=== PATIENT | male | born 2000 | race African-American/Black ===

== ENCOUNTER 2018-11-10 01:45 | Emergency (ER) | payer OTHER ==
[2018-11-10 02:07] VITALS: BP 142/64
--- NOTE | 2018-11-10 04:03 | RADIOLOGY REPORT (SQ) ---
EXAM DESCRIPTION: XR TIBIA FIBULA 2 VIEWS right COMPLETED DATE/TME: 11/10/2018 03:33 CLINICAL HISTORY: 18 years, Male, injury COMPARISON: None. FINDINGS: No fracture or dislocation. Soft tissues are unremarkable. IMPRESSION: No acute abnormality.
--- NOTE | 2018-11-10 04:42 | ER Document Report ---
ED General - General Chief Complaint: Leg Injury Stated Complaint: RIGHT LEG INJURY Time Seen by Provider: 11/10/18 03:16 Notes: You were seen today in the emergency department for an injury to your right hogue. He was moving boxes and hit his hogue on a step while he was carrying boxes. He states it hurts his mid hogue on the anterior portion of his leg. He is able to walk. Denies any past medical history. TRAVEL OUTSIDE OF THE [place] IN LAST 30 DAYS: No - Related Data Allergies/Adverse Reactions: No Known Allergies Allergy (Unverified 11/10/18 02:19) Past Medical History - Social History Smoking Status: Unknown if Ever Smoked Chew tobacco use (# tins/day): No Frequency of alcohol use: None Drug Abuse: None Family History: Reviewed & Not Pertinent Patient has suicidal ideation: No Patient has homicidal ideation: No Renal/ Medical History: Denies: Hx Peritoneal Dialysis Review of Systems - Review of Systems Notes: REVIEW OF SYSTEMS: CONSTITUTIONAL : Denies recent illness. Denies recent unintentional weight loss. Denies fever, chills, or sweats. EENT: Denies eye, ear, throat, or mouth pain, discharge, or symptoms. Denies nasal or sinus congestion. CARDIOVASCULAR: Denies chest pain. RESPIRATORY: Denies shortness of breath, cough, congestion, difficulty breathing, or wheezing. GASTROINTESTINAL: Denies nausea, vomiting, and diarrhea. Denies abdominal pain. Denies constipation. GENITOURINARY: Denies difficulty urinating, burning, blood in urine, urgency or frequency. MUSCULOSKELETAL: See HPI SKIN: Denies rash, itchiness, or lesions HEMATOLOGIC : Denies easy bruising or bleeding. LYMPHATIC: Denies swollen, painful, enlarged glands. NEUROLOGICAL: Denies no numbness or tingling denies weakness. Denies headache. Denies altered mental status. Denies alteration in speech. PSYCHIATRIC: Denies stress, anxiety, alteration in sleep patterns, or depression. All other systems reviewed and negative. Physical Exam - Vital signs Vitals: Temp Pulse Resp BP Pulse Ox 98.1 F 65 16 142/64 H 99 11/10/18 02:03 11/10/18 02:03 11/10/18 02:03 11/10/18 02:03 11/10/18 02:03 - Notes Notes: PHYSICAL EXAMINATION: GENERAL: Appears well, healthy, well-nourished, no acute distress. HEAD: Normocephalic, atraumatic. EYES: PERRL, conjunctiva normal, all extraocular movements intact, sclera nonicteric ENT: Moist mucous membranes. NECK: Supple, no noticeable swelling, redness, rash. Normal range of motion. LUNGS: Equal breath sounds bilaterally and clear to auscultation. No wheezes rales or rhonchi. CARDIOVASCULAR: S1-S2, regular rate, regular rhythm. Radial pulses 2+, normal. ABDOMEN: Normoactive bowel sounds. Soft, nontender, no guarding, no rebound tenderness, and no masses palpated. EXTREMITIES: Normal strength and range of motion, no pitting or edema. No cyanosis. NEUROLOGICAL: Moves all extremities upon command. Strength 5/5 in all extremities. PSYCH: Normal mood, normal affect. SKIN: Warm, dry. No rash, lesions, ulcerations noted. Normal skin turgor. Course - Re-evaluation Re-evalutation: 11/10/18 04:43 Patient's x-ray is negative for any acute fracture. He will be sent home with ibuprofen and Tylenol. We will provide him crutches for comfort. He will follow-up with his primary care provider in regards to this visit. Return precautions were given. Verbal discharge instructions were given to the patient. They verbalized understanding. They are stable for discharge. - Vital Signs Vital signs: Temp Pulse Resp BP Pulse Ox 98.1 F 65 16 142/64 H 99 11/10/18 02:03 11/10/18 02:03 11/10/18 02:03 11/10/18 02:03 11/10/18 02:03 Procedures - Immobilization Right Leg Pre-Proc Neuro Vasc Exam: Normal Immobilizer type: Crutches Performed by: RN Post-Proc Neuro Vasc Exam: Normal Discharge - Discharge Clinical Impression: Injury of right hogue Qualifiers: Encounter type: initial encounter Qualified Code(s): S89.91XA - Unspecified injury of right lower leg, initial encounter Condition: Stable Disposition: HOME, SELF-CARE Additional Instructions: You were seen today in the emergency department for an injury to her right hogue. There is no fracture on her x-ray. You have been provided crutches to help with comfort. You can take ibuprofen 600 mg and Tylenol 1000 mg every 6 hours as needed for your pain. Please follow-up with your PCM in regards to this visit. If you are unable to walk, or have worsening symptoms, please return to the emergency department.
[2018-11-10] MEDS ORDERED: ACETAMINOPHEN 325 MG TABLET PO ONE (05:03)
[2018-11-10] MEDS ORDERED: IBUPROFEN 600 MG TABLET PO ONE (05:03)
== END 2018-11-10 05:38 | disposition home or self-care (01) ==
LOC: ER 01:45
DX: S89.91XA Unspecified injury of right lower leg, initial encounter (principal); W22.09XA Striking against other stationary object, initial encounter; Y93.89 Activity, other specified
CPT/HCPCS: 99283